=== PATIENT | male | born 1950 | race Caucasian/White ===

== ENCOUNTER 2016-06-21 23:59 | Observation (INO) | payer OTHER ==
[~2016-06-21] VITALS: Ht 193 cm; Wt 72.7 kg
[2016-06-22 08:07] VITALS: BP 113/74; PULSE 111
[2016-06-22] MEDS ORDERED: DILAUDID-51 MG/M1 PO (12:32)
[2016-06-22 12:57] VITALS: BP 113/74; PULSE 111; TEMP 97.3
[2016-06-22] MEDS ORDERED: FENTANYL 50MCG TD (13:13)
[2016-06-22] MEDS ORDERED: TRANSDERM-0.5 MG/21 TD (13:13)
[2016-06-22] MEDS ORDERED: FENTANYL 100MCG TD (13:13)
[2016-06-22] MEDS ORDERED: ATIVAN 1MG T1 MG/TAB PO (13:21)
[2016-06-22] MEDS ORDERED: HALDOL 1MG T1 MG/TAB PO (13:21)
== END 2016-06-22 14:42 | disposition hospice, inpatient (51) ==
LOC: COL.ER 23:59 → MEDICAL 06-22 01:03
DX: C22.9 Malignant neoplasm of liver, not specified as primary or secondary (principal); C78.00 Secondary malignant neoplasm of unspecified lung; G89.3 Neoplasm related pain (acute) (chronic); J44.9 Chronic obstructive pulmonary disease, unspecified; I25.10 Atherosclerotic heart disease of native coronary artery without angina pectoris; I50.9 Heart failure, unspecified; Z80.3 Family history of malignant neoplasm of breast; Z80.49 Family history of malignant neoplasm of other genital organs; Z86.19 Personal history of other infectious and parasitic diseases; Z66 Do not resuscitate
CPT/HCPCS: 99223-AI; G0378; J1170; J2060